=== PATIENT | female | born 1995 ===

== ENCOUNTER 2024-07-20 01:36 | Outpatient (CLI) | payer BC, SELFPAY ==
[2024-07-20 11:44] LABS: Panorama Kit Sent via Fed Ex
[2024-07-20 12:07] LABS: Abs Immature Grans 0.02 10^3/uL (0.0-0.06); Absolute Basophil Count 0.05 10^3/uL (0.0-0.2); Absolute Eosinophil Count 0.09 10^3/uL (0.0-0.7); Absolute Lymphocyte Count 2.66 10^3/uL (1.2-3.4); Absolute Monocyte Count 0.61 10^3/uL (0.1-0.8); Absolute Neutrophil Count 4.76 10^3/uL (1.2-6.7); Basophils % 0.6 %; Eosinophils % 1.1 %; HCT 39.1 % (36.0-46.0); HGB 13.3 g/dL (11.2-15.7); Immature Grans % 0.2 %; Lymphocytes % 32.5 %; MCH 28.4 pg (27.0-33.0); MCV 83 fL (80-95); MPV 9.9 fL (8.0-11.0); Monocytes % 7.4 %; Neutrophils % 58.2 %; Platelet Count 415 10^3/uL (130-400); RBC 4.69 10^6/uL (3.93-5.22); RDW-SD 38.8 fL; WBC 8.19 10^3/uL (4.4-10.8)
[2024-07-20 12:30] LABS: ALT 18 U/L (14-59); AST 13 U/L (15-37); Albumin 3.4 g/dL (3.4-5.0); Alkaline Phosphatase 89 U/L (46-116); Anion Gap 8.7 mmol/L (3-11); BUN 8 mg/dL (7-18); Bilirubin, Total 0.5 mg/dL (0.2-1.0); CO2 26.3 mmol/L (21.0-32.0); CREATININE 0.6 mg/dL (0.55-1.02); Calcium 9.5 mg/dL (8.5-10.1); Chloride 101 mmol/L (98-107); Estimated GFR 126.09 (mL/min/1.73m2); Glucose 82 mg/dL (74-106); Potassium 3.5 mmol/L (3.5-5.1); Sodium 136 mmol/L (136-145); TSH (W/Ref FT4) 0.74 uIU/mL (0.36-3.74); Total Protein 7.9 g/dL (6.4-8.2)
[2024-07-20 13:13] LABS: Hemoglobin A1C 5.1 % (<5.7)
[2024-07-21 09:12] LABS: Hepatitis B Surface Ag Negative (Negative)
[2024-07-21 09:49] LABS: HIV-1/2 Ag & Ab Screen Negative (Negative)
[2024-07-21 09:53] LABS: Varicella IgG Antibody Negative (See Note)
[2024-07-21 10:08] LABS: Rubella IgG Ab (UVM) Positive (See Note)
[2024-07-21 10:23] LABS: Hepatitis C Ab w Rflx HCV PCR Negative (Negative)
[2024-07-23 15:27] LABS: Syphilis IgG w/Reflex Nonreactive (Nonreactive)
== END 2024-07-20 01:37 | disposition home or self-care (01) ==
PROVIDERS: Visit Provider Advanced Practice Midwife
DX: Z34.91 Encounter for supervision of normal pregnancy, unspecified, first trimester (principal); Z82.79 Family history of other congenital malformations, deformations and chromosomal abnormalities; O09.291 Supervision of pregnancy with other poor reproductive or obstetric history, first trimester
CPT/HCPCS: 36415; 80053; 86787; 86803; 86850; 86900; 86901; 87340; 87389; 83036; 84443; 85025; 86762; 86780

== ENCOUNTER 2024-07-20 13:01 | Outpatient (REF) | payer BC, SELFPAY ==
[2024-07-20 16:51] LABS: COMMENT (LAB VIEW ONLY) 342.51 mg/dL; Prot/Crea Ur Ratio 0.07
[2024-07-21 11:12] LABS: Chlamydia Result Negative (Negative); GC Result Negative (Negative)
== END 2024-07-20 13:02 | disposition home or self-care (01) ==
LOC: LBN 13:01
PROVIDERS: Visit Provider Advanced Practice Midwife
DX: O09.291 Supervision of pregnancy with other poor reproductive or obstetric history, first trimester (principal); Z3A.11 11 weeks gestation of pregnancy
CPT/HCPCS: 87491; 87591; 82565; 84156; 87086

== ENCOUNTER 2024-08-17 14:21 | Outpatient (CLI) | payer BC, SELFPAY ==
[2024-08-17 14:04] LABS: Panorama Kit Sent via Fed Ex
== END 2024-08-17 14:22 | disposition home or self-care (01) ==
LOC: LBO 14:21
PROVIDERS: Visit Provider Advanced Practice Midwife
DX: Z34.91 Encounter for supervision of normal pregnancy, unspecified, first trimester (principal)
CPT/HCPCS: 36415

== ENCOUNTER 2024-10-12 13:55 | Outpatient (REF) | payer BC, SELFPAY | END 2024-10-12 13:56 | disposition home or self-care (01) | LOC: LBN 13:55 | PROVIDERS: Visit Provider Advanced Practice Midwife | DX: Z34.92 Encounter for supervision of normal pregnancy, unspecified, second trimester (principal) | CPT/HCPCS: 87480; 87510; 87660 ==

== ENCOUNTER 2024-12-26 00:06 | Outpatient (CLI) | payer OTHER, SELFPAY ==
[2024-12-26 14:56] LABS: HCT 33.9 % (36.0-46.0); HGB 11.3 g/dL (11.2-15.7); MCH 27.0 pg (27.0-33.0); MCHC 33.3 % (32.0-36.0); MCV 81 fL (80-95); MPV 9.9 fL (8.0-11.0); Platelet Count 423 10^3/uL (130-400); RBC 4.18 10^6/uL (3.93-5.22); RDW 12.8 % (11.7-14.6); RDW-SD 37.2 fL; WBC 8.03 10^3/uL (4.4-10.8)
[2024-12-26 15:03] LABS: Glucose,1 Hr (Glucola) 155 mg/dL (80-140)
[2024-12-26 16:40] LABS: ALT 11 U/L (14-59); AST 10 U/L (15-37); Albumin 2.3 g/dL (3.4-5.0); Alkaline Phosphatase 236 U/L (46-116); Anion Gap 11.4 mmol/L (3-11); BUN 3 mg/dL (7-18); Bilirubin, Total 0.5 mg/dL (0.2-1.0); CO2 26.6 mmol/L (21.0-32.0); Calcium 9.1 mg/dL (8.5-10.1); Chloride 100 mmol/L (98-107); Estimated GFR 125.31 (mL/min/1.73m2); Glucose 157 mg/dL (74-106); Sodium 138 mmol/L (136-145); Total Protein 7.1 g/dL (6.4-8.2)
[2024-12-26 16:48] LABS: Potassium 2.8 mmol/L (3.5-5.1)
[2024-12-26 16:58] LABS: Hemoglobin A1C 5.6 % (<5.7)
== END 2024-12-26 00:07 | disposition home or self-care (01) ==
LOC: LBO 00:07 → LBN 19:32 → LBO 19:33
PROVIDERS: Visit Provider Advanced Practice Midwife
DX: Z34.93 Encounter for supervision of normal pregnancy, unspecified, third trimester (principal); O09.293 Supervision of pregnancy with other poor reproductive or obstetric history, third trimester; Z68.41 Body mass index [BMI] 40.0-44.9, adult
CPT/HCPCS: 36415; 80053; 82950; 85027; 83036

== ENCOUNTER 2024-12-26 19:39 | Outpatient (REF) | payer OTHER, SELFPAY | END 2024-12-26 19:40 | disposition home or self-care (01) | LOC: LBN 19:39 | PROVIDERS: Visit Provider Advanced Practice Midwife | DX: Z34.93 Encounter for supervision of normal pregnancy, unspecified, third trimester (principal); O23.593 Infection of other part of genital tract in pregnancy, third trimester; A59.01 Trichomonal vulvovaginitis | CPT/HCPCS: 87480; 87510; 87660 ==

== ENCOUNTER 2025-01-05 03:43 | Outpatient (CLI) | payer OTHER, SELFPAY | END 2025-01-05 03:44 | disposition home or self-care (01) | LOC: LBO 03:44 | PROVIDERS: Visit Provider Advanced Practice Midwife | DX: Z68.41 Body mass index [BMI] 40.0-44.9, adult (principal); Z34.93 Encounter for supervision of normal pregnancy, unspecified, third trimester | CPT/HCPCS: 36415; 82951 ==

== ENCOUNTER → 2025-01-09 00:51 | Outpatient (CLI) | payer OTHER, SELFPAY ==
--- NOTE | 2025-01-09 06:45 | DI.US_ITS ---
Exam(s) US OB ALAINA WEIGHT EXAM: US OB ALAINA WEIGHT CLINICAL HISTORY: interval growth,Z34.90. TECHNIQUE: Transabdominal obstetrical ultrasound performed. COMPARISON: No exams were available for comparison FINDINGS: Number of fetuses: 1 position: CEPHALIC Placental location: There is a grade 2 fundal and posterior placenta. No evidence of previa. BIOMETRIC DATA: BPD: 9.22cm, 37weeks 3days HC: 34.41cm, 39weeks 5days AC: 35.86cm, 39weeks 5days FL: 7.49cm, 38weeks 2days EFW: 3,702.28g, 8lb 2.73oz, 97% Composite Age: 38weeks 6days CORDELL: 01/17/2025 Heart Rate: 134bpm Amniotic fluid index: 13.1cm. The largest pocket measures 6.5 cm. IMPRESSION: 1. Single live intrauterine gestation as above. 2. Estimated weight is 3702gms. This is the 97th percentile. 3. Amniotic fluid index is 13.1 cm. The largest pocket measures 6.5 cm. DATA REPOSITORY:
== END ==
LOC: DI 00:51
PROVIDERS: Visit Provider Advanced Practice Midwife
DX: Z34.93 Encounter for supervision of normal pregnancy, unspecified, third trimester (principal); Z68.41 Body mass index [BMI] 40.0-44.9, adult; Z3A.39 39 weeks gestation of pregnancy
CPT/HCPCS: 76816

== ENCOUNTER 2025-01-09 13:37 | Outpatient (REF) | payer OTHER, SELFPAY ==
[2025-01-09 14:32] LABS: Prot/Crea Ur Ratio 0.13
== END 2025-01-09 13:38 | disposition home or self-care (01) ==
LOC: LBN 13:37
PROVIDERS: Visit Provider Advanced Practice Midwife
DX: O09.293 Supervision of pregnancy with other poor reproductive or obstetric history, third trimester (principal); Z34.93 Encounter for supervision of normal pregnancy, unspecified, third trimester
CPT/HCPCS: 82565; 84156; 87081

== ENCOUNTER 2025-01-09 13:58 | Outpatient (CLI) | payer OTHER, SELFPAY ==
[2025-01-09 13:50] LABS: HCT 33.0 % (36.0-46.0); HGB 10.9 g/dL (11.2-15.7); MCH 26.1 pg (27.0-33.0); MCHC 33.0 % (32.0-36.0); MCV 79 fL (80-95); MPV 9.9 fL (8.0-11.0); Platelet Count 394 10^3/uL (130-400); RBC 4.18 10^6/uL (3.93-5.22); RDW 13.0 % (11.7-14.6); RDW-SD 36.4 fL; WBC 7.28 10^3/uL (4.4-10.8)
[2025-01-09 14:04] LABS: Hemoglobin A1C 5.6 % (<5.7)
[2025-01-09 14:10] LABS: ALT 10 U/L (14-59); AST 11 U/L (15-37); Albumin 2.2 g/dL (3.4-5.0); Alkaline Phosphatase 250 U/L (46-116); Anion Gap 8.3 mmol/L (3-11); BUN 3 mg/dL (7-18); Bilirubin, Total 0.6 mg/dL (0.2-1.0); CO2 28.7 mmol/L (21.0-32.0); Calcium 9.4 mg/dL (8.5-10.1); Chloride 101 mmol/L (98-107); Glucose 91 mg/dL (74-106); Potassium 3.3 mmol/L (3.5-5.1); Sodium 138 mmol/L (136-145); Total Protein 7.0 g/dL (6.4-8.2)
== END 2025-01-09 13:59 | disposition home or self-care (01) ==
LOC: LBO 13:59
PROVIDERS: Visit Provider Advanced Practice Midwife
DX: Z34.93 Encounter for supervision of normal pregnancy, unspecified, third trimester (principal); Z68.41 Body mass index [BMI] 40.0-44.9, adult; O09.293 Supervision of pregnancy with other poor reproductive or obstetric history, third trimester
CPT/HCPCS: 36415; 80053; 85027; 83036

== ENCOUNTER 2025-01-31 06:35 | Inpatient (IN) | payer OTHER, SELFPAY ==
[2025-01-31] VITALS (26 sets, daily range): BP systolic 112–165; BP diastolic 66–96; PULSE 76–116; RESP 17–20; TEMP 36.4–37.2; O2SAT 95–99
[2025-01-31] MEDS: Oxytocin 10 UNITS/ML VIAL IM (05:42)
[2025-01-31 07:07] LABS: Abs Immature Grans 0.09 10^3/uL (0.0-0.06); HCT 32.4 % (36.0-46.0); HGB 10.5 g/dL (11.2-15.7); Immature Grans % 0.5 %; MCH 25.0 pg (27.0-33.0); MCHC 32.4 % (32.0-36.0); MCV 77 fL (80-95); MPV 10.8 fL (8.0-11.0); Platelet Count 384 10^3/uL (130-400); RBC 4.20 10^6/uL (3.93-5.22); RDW 13.5 % (11.7-14.6); RDW-SD 37.4 fL; WBC 17.26 10^3/uL (4.4-10.8)
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
[2025-01-31 07:38] LABS: ALT 8 U/L (10-49); AST 17 U/L (<34); Albumin 3.8 g/dL (3.2-5.0); Alkaline Phosphatase 276 U/L (46-116); Anion Gap 6.9 mmol/L (3-11); BUN 8 mg/dL (9-23); Bilirubin, Total 0.40 mg/dL (0.2-1.2); CO2 24.1 mmol/L (20.0-31.0); Calcium 10.0 mg/dL (8.3-10.6); Chloride 106 mmol/L (98-107); Glucose 105 mg/dL (74-106); Potassium 3.7 mmol/L (3.5-5.1); Sodium 137 mmol/L (136-145); Total Protein 6.9 g/dL (5.7-8.2); Uric Acid 6.4 mg/dL (3.1-7.8)
--- NOTE | 2025-01-31 07:47 | W.OBDELIVERY ---
Date of service: 01/31/25 Time of Service: 05:31 OB Labor/ Delivery Information Baby A Delivery Delivery Method: Spontaneaous Presentation: Cephalic Cephalic Position: Vertex Vertex Position: Left Occipital Anterior Cord Description-Baby A: 3 Vessels Amniotic Fluid: Meconium Estimated Blood Loss: 250 Delivery Outcome: Liveborn Infant Transferred: Remains with Mother Note: Arrived in active labor. FHTs 140s during first stage of labor. FHTs 140 in second stage. She progressed to full dilation 0521 and began pushing. AROM @528 for thick meconium fluid. Spontaneous of live male @0531. Baby was placed on mother's abdomen, dried and stimulated. Mouth was suctioned for thick meconium. Spontaneous cry. Apgars 8/9. Cord was clamped and cut by father. The placenta delivered spontaneously @ 0537 Shiny duran and appears to be intact with a three vessel cord. Pitocin 10Units was administered after delivery of the placenta. The perineum was inspected and first degree vaginal laceration repaired with 3-0 Vicryl. EBL 250. The baby did breastfeed. After , Mother and baby and father of the baby were stable and bonding well in the birthing suite and there were no complications. Providers Nurse High School Academic Coach: Zandra Maurer Nurse: Mallika Bosch Nurse: Melinda Bravo Labor/Delivery Information Number of Babies in Womb: 1 Steroids Given: None Reason Steroids Not Administered: N/A Group Beta Strep: Negative Antibiotics Administered: No Rubella Status: Immune Blood Type: O+ Varicella Immunity: Nonimmune Maternal Complications: Precipitous Labor(<3hrs) Shoulder Dystocia: No Stages of Labor Onset of Labor Date: 01/31/25 Onset of Labor Time: 03:15 Complete Dilatation Date: 01/31/25 Complete Dilatation Time: 05:22 Labor - Stage 1 Duration: 2 hours and 7 minutes ROM Baby A: 01/31/25 ROM Baby A: 05:28 ROM Total Time- Baby A: [id number] Delivery Date-Baby A: 01/31/25 Infant Delivery Time-Baby A: 05:31 Labor Stage 2 Duration: 9 minutes Placenta Delivery Date-Baby A: 01/31/25 Placenta Delivery Time-Baby A: 05:37 Labor-Stage 3 Duration: 6 minutes Total Length of Labor-Baby A: 2 hours and 16 minutes Placenta Status: Delivered Baby A Infant Gender: Male Gestational Status: Term (39-41.6 wks) Gestational Age in Weeks/Days: 39 Weeks and 0 Days weight: 9 lb 4 oz Score-1 Minute Interval(Baby A) Heart Rate-1 minute: 100 BPM or Greater Respiratory Effort- 1 minute: Slow Respiration/Weak Cry Muscle Tone-1 minute: Active Movement Reflex Response-1 minute: Prompt Response Color-1 minute: Bluish Hands or Feet Total Score-1 minute: 8 Score-5 Minute Interval(Baby A) Heart Rate- 5 minute: 100 BPM or Greater Respiratory Effort-5 minute: Spontaneous/Strong Cry Muscle Tone-5 minute: Active Movement Reflex Response-5 minute: Prompt Response Color-5 minute: Bluish Hands or Feet Total Score- 5 minute: 9 Interventions Repair of Laceration (second degree vaginal laceration repaired with 3-0 vicryl) Shoulder Dystocia Delivery Times Date of Delivery of Head: 01/31/25 Time of Delivery of the Head: 05:31 Head to Body Delivery Interval(minutes): 60 seconds Verify No Fundal Pressure Applied Fundal Pressure: No Pressure Applied Verify No Fundal Pressure Applied Fundal Pressure-Baby B: No Pressure Applied
[2025-01-31] MEDS: Acetaminophen 325 MG TAB 650 MG PO ×3 (07:57→22:32)
[2025-01-31] MEDS: Ibuprofen 600 MG TAB PO ×3 (07:57→22:33)
[2025-01-31] MEDS: Docusate Sodium 100 MG CAP PO ×2 (07:58→22:33)
[2025-01-31] MEDS: buPROPion-XL 150 MG TABCR 300 MG PO (10:41)
[2025-01-31] MEDS: OLANZapine 2.5 MG TAB PO (10:41)
[2025-01-31] MEDS: lamoTRIgine 100 MG TAB 200 MG PO (10:41)
[2025-01-31] MEDS: Varicella Virus Vaccine (Live) 0.5 ML SC (10:41)
--- NOTE | 2025-01-31 23:08 | W.PM.OBPNV1 ---
Date of service: 01/31/25 Time of Service: 23:08 Subjective Subjective Patient comments: No complaints Narrative: S: Patient has been resting comfortably today, bonding with baby. Pt denies any blurred vision/headaches. O: Nursing staff reports elevations in blood pressures. Blood Pressures range 116-144/ 75-94. (Prenatally 115-130/77-82). No edema noted in extremities. 2+ DTRs. Labwork: HGB 10.5/ HCT 32/ PLT 384/ ALT 8 / AST 17. A: w/ elevated Blood Pressures P: Continue to monitor Exam Physical Exam Vital signs: Temp Pulse Resp BP Pulse Ox 97.6 F 97 H 17 135/78 98 01/31/25 22:09 01/31/25 22:09 01/31/25 22:09 01/31/25 22:35 01/31/25 22:09 Results Hemoglobin/Hematocrit: Hgb 10.5 g/dL (11.2-15.7) L 01/31/25 06:55 Hct 32.4 % (36.0-46.0) L 01/31/25 06:55 Abnormal Lab Findings: Abnormal Labs 01/31/25 06:55 WBC 17.26 H Hgb 10.5 L Hct 32.4 L MCV 77 L MCH 25.0 L Absolute Neutrophils 14.65 H Absolute Monocytes 0.83 H BUN 8 L ALT 8 L Alkaline Phosphatase 276 H
[2025-02-01 01:19] VITALS: BP 129/81; PULSE 115; RESP 18; TEMP 36.4; O2SAT 98
[2025-02-01 05:45] VITALS: BP 136/80; PULSE 105; RESP 18; TEMP 36.6; O2SAT 99
[2025-02-01] MEDS: buPROPion-XL 150 MG TABCR 300 MG PO (08:02)
[2025-02-01] MEDS: lamoTRIgine 100 MG TAB 200 MG PO (08:02)
[2025-02-01] MEDS: OLANZapine 2.5 MG TAB PO (08:02)
[2025-02-01 08:05] VITALS: BP 130/87; PULSE 104; RESP 20; TEMP 36.6; O2SAT 98
[2025-02-01] MEDS: Docusate Sodium 100 MG CAP PO (08:56)
[2025-02-01 09:17] LABS: Abs Immature Grans 0.09 10^3/uL (0.0-0.06); HCT 26.7 % (36.0-46.0); HGB 8.9 g/dL (11.2-15.7); Immature Grans % 0.8 %; MCH 25.9 pg (27.0-33.0); MCHC 33.3 % (32.0-36.0); MCV 78 fL (80-95); MPV 10.4 fL (8.0-11.0); Platelet Count 382 10^3/uL (130-400); RBC 3.44 10^6/uL (3.93-5.22); RDW 13.8 % (11.7-14.6); RDW-SD 38.8 fL; WBC 10.81 10^3/uL (4.4-10.8)
[2025-02-01 11:55] VITALS: BP 134/83; PULSE 101; RESP 18; TEMP 36.5; O2SAT 98
[2025-02-01 16:20] VITALS: BP 131/83; PULSE 114; RESP 18; TEMP 36.7; O2SAT 97
--- NOTE | 2025-02-01 18:41 | W.PM.OBPNV1 ---
Date of service: 02/01/25 Time of Service: 18:41 Assessment and Plan Assessment and plan (1) Term of male : Start date: 01/31/25 Start time: 06:00 Status: Acute (2) state: Start date: 01/31/25 Start time: 06:00 Status: Acute Assessment and plan: Discharge in AM Subjective Subjective baby status: Doing well, Nursing well, Rooming in and Strong Bonding Observed feeding status: Exclusively breast feeding Narrative: Zina is doing well today. She is caring for her baby independently. She is at time of visit. The baby is latched on and Zina displays confidence with . This is the first baby she has breastfed. FOB and sister are also in the room. FOB shows appropriate bonding with baby. We have a discussion about juandice-- larger babies can have more juandice and putting the baby in indirect light in the window can help with this. This video game script writer demonstrates this to parents. Zina's pain is managed well with oral analgesics. She is voiding without difficulty. Exam Physical Exam Vital signs: Temp Pulse Resp BP Pulse Ox 98.1 F 114 H 18 131/83 97 02/01/25 16:20 02/01/25 16:20 02/01/25 16:20 02/01/25 16:20 02/01/25 16:20 Constitutional Constitutional: no acute distress HEENT Exam HEENT Exam: Normal Respiratory Exam Respiratory Exam: Normal Cardiovascular Exam Cardiovascular Exam: Normal Fundal Exam Fundus: Firm Rectal Exam Rectal Exam: Not Done Results Hemoglobin/Hematocrit: Hgb 8.9 g/dL (11.2-15.7) L 02/01/25 09:07 Hct 26.7 % (36.0-46.0) L 02/01/25 09:07 Abnormal Lab Findings: Abnormal Labs 01/31/25 02/01/25 06:55 09:07 WBC 17.26 H 10.81 H RBC 3.44 L Hgb 10.5 L 8.9 L Hct 32.4 L 26.7 L MCV 77 L 78 L MCH 25.0 L 25.9 L Absolute Neutrophils 14.65 H Absolute Lymphocytes 3.86 H Absolute Monocytes 0.83 H 0.89 H BUN 8 L ALT 8 L Alkaline Phosphatase 276 H
[2025-02-01 20:00] VITALS: BP 136/89; PULSE 112; RESP 18; TEMP 37.1; O2SAT 98
[2025-02-01] MEDS: Acetaminophen 325 MG TAB 650 MG PO (20:10)
[2025-02-01] MEDS: Ibuprofen 600 MG TAB PO (20:11)
[2025-02-02] MEDS: Acetaminophen 325 MG TAB 650 MG PO (00:42)
[2025-02-02 08:05] VITALS: BP 144/90; PULSE 107; TEMP 36.6; O2SAT 99
[2025-02-02] MEDS: lamoTRIgine 100 MG TAB 200 MG PO (09:17)
[2025-02-02] MEDS: buPROPion-XL 150 MG TABCR 300 MG PO (09:17)
[2025-02-02] MEDS: OLANZapine 2.5 MG TAB PO (09:18)
--- NOTE | 2025-02-02 09:34 | W.PM.OBPNV1 ---
Date of service: 02/02/25 Time of Service: 09:30 Assessment and Plan Assessment and plan (1) state: Status: Acute Assessment and plan: Discharge home RTO 2 weeks Subjective Subjective Patient comments: No complaints and Pain well controlled [place] baby status: Doing well, Nursing well and Strong Bonding Observed feeding status: Exclusively breast feeding Exam Physical Exam Vital signs: Temp Pulse Resp BP Pulse Ox 97.9 F 107 H 18 144/90 H 99 02/02/25 08:05 02/02/25 08:05 02/01/25 20:00 02/02/25 08:05 02/02/25 08:05 Vital Signs Reviewed: Yes Narrative: Caring for baby independently. Pain is managed well with oral analgesics. Voiding without difficulty. well. A - stable mother and baby , Post day 2 P - Discharge to home. Routine post instructions. Follow up at [facility]. Constitutional Constitutional: no acute distress Results Hemoglobin/Hematocrit: Hgb 8.9 g/dL (11.2-15.7) L 02/01/25 09:07 Hct 26.7 % (36.0-46.0) L 02/01/25 09:07 Abnormal Lab Findings: Abnormal Labs 01/31/25 02/01/25 06:55 09:07 WBC 17.26 H 10.81 H RBC 3.44 L Hgb 10.5 L 8.9 L Hct 32.4 L 26.7 L MCV 77 L 78 L MCH 25.0 L 25.9 L Absolute Neutrophils 14.65 H Absolute Lymphocytes 3.86 H Absolute Monocytes 0.83 H 0.89 H BUN 8 L ALT 8 L Alkaline Phosphatase 276 H
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
== END 2025-02-02 09:43 | disposition home or self-care (01) | DRG 807 ==
PROVIDERS: Admitting Provider Registered Nurse; Visit Provider Advanced Practice Midwife
DX: O99.344 Other mental disorders complicating childbirth (principal); Z37.0 Single live birth; Z3A.39 39 weeks gestation of pregnancy; F31.9 Bipolar disorder, unspecified; O77.0 Labor and delivery complicated by meconium in amniotic fluid; O70.0 First degree perineal laceration during delivery; Z59.89 Other problems related to housing and economic circumstances; R45.89 Other symptoms and signs involving emotional state
CPT/HCPCS: 00123; 36415; 80053; 86850; 86900; 86901; 90716; 84550; 85025; J2590